=== PATIENT | female | born 1975 | race Two or more races ===

== ENCOUNTER 2016-05-14 19:24 | Emergency (ER) | payer OTHER ==
[~2016-05-14] VITALS: Ht 167.6 cm; Wt 99.8 kg
--- NOTE | 2016-05-14 19:46 | NUR ---
PT BB SELF TO ER C/C LOWER BACK PAIN WHILE GETTING OUT OF BED YESTERDAY. A+OX4. SKIN WARM, DRY. AFEBRILE. RR EVEN, UNLABORED. VSS, NAD NOTED. AMBULATED WITH STEADY GAIT TO ER BED 06. AWAITING MD BARNES AND FURTHER ORDERS. Valeria GRIFFIN RN INFORMED OF PT, GIVEN PT TO CONTINUE MAKENZIE.
--- NOTE | 2016-05-14 19:48 | NUR ---
DR. RIVERA AT BEDSIDE FOR EVAL.
[2016-05-14] MEDS ORDERED: KETOROLAC TROMETHAMINE 15 MG/ML VIAL ONE (19:58)
[2016-05-14] MEDS ORDERED: IV SET PRIMARY 1 EA INFUS.SET MC ONE (19:58)
[2016-05-14] MEDS ORDERED: IV NS 0.9% 1,000 ML ONE (19:58)
[2016-05-14] MEDS ORDERED: IV NS 0.9% 1,000 ML BAG IV ONE (20:00)
[2016-05-14] MEDS ORDERED: KETOROLAC TROMETHAMINE INJ 30 MG/ML VIAL IV ONE (20:00)
[2016-05-14 20:02] LABS: BASOPHILS % (AUTO) 0.5 % (0.0-2.0); EOSINOPHILS # (AUTO) 0.2 /CMM (0.0-0.7); EOSINOPHILS % (AUTO) 2.2 % (0.0-6.0); HEMATOCRIT 42 % (33-45); LYMPHOCYTES # (AUTO) 3.3 /CMM (0.8-4.8); LYMPHOCYTES % (AUTO) 33.8 % (20.0-44.0); MEAN CORPUSCULAR HEMOGLOBIN 30 PG (26.0-33.0); MEAN CORPUSCULAR HGB CONC 33 g/dl (31.0-36.0); MEAN CORPUSCULAR VOLUME 91 fL (82-100); MONOCYTES # (AUTO) 0.7 /CMM (0.1-1.30); MONOCYTES % (AUTO) 7.5 % (2.0-12.0); NEUTROPHILS # (AUTO) 5.5 /CMM (1.8-8.9); PLATELET COUNT (AUTO) 236 /CMM (150-450); RDW COEFFICIENT OF VARIATION 11.9 (11.5-15.0); RED BLOOD CELL COUNT(AUTO) 4.64 MIL/uL (4.0-5.2); WHITE BLOOD COUNT (AUTO) 9.7 K/uL (4.3-11.0)
--- NOTE | 2016-05-14 20:07 | NUR ---
URINE COLLECTED. CALLED LAB FOR [employer].
[2016-05-14 20:10] LABS: APPEARANCE,URINE Clear (CLEAR); BILIRUBIN,URINE Negative (NEGATIVE); BLOOD, URINE Large Ery/uL (NEGATIVE); COLOR,URINE Yellow (YELLOW); KETONES,URINE Negative (NEGATIVE); LEUKOCYTE ESTERASE ,URINE Negative (NEGATIVE); NITRITE, URINE Negative (NEGATIVE); PROTEIN,URINE 30 mg/dl (NEGATIVE); UGLUCOSE Negative (NEGATIVE)
[2016-05-14 20:12] LABS: CALCIUM, SERUM 8.5 mg/dL (8.5-10.1); CREATININE 0.9 mg/dL (0.6-1.3); POTASSIUM 3.6 mmol/L (3.5-5.1)
[2016-05-14 20:12] LABS: PREGNANCY TEST URINE QUAL NEGATIVE (NEGATIVE)
--- NOTE | 2016-05-14 20:17 | NUR ---
PT TO CT.
[2016-05-14 20:18] LABS: ALBUMIN 3.5 g/dL (3.4-5.0); BILIRUBIN,DIRECT 0.1 mg/dL (0.0-0.2); BILIRUBIN,TOTAL 0.5 mg/dL (0.2-1.0); TOTAL PROTEIN, SERUM 7.4 g/dL (6.4-8.2)
[2016-05-14 20:21] LABS: ADD URINE CULTURE NO; BACTERIA,URINE Few /HPF (None Seen); RBC,URINE TOO NUMEROUS TO COUN /HPF (0-2); SQUAMOUS EPITHELIAL CELL,UR Few /HPF (None Seen); WBC,URINE 0-2 /HPF (0-3)
--- NOTE | 2016-05-14 20:30 | NUR ---
PT RETURNED FROM CT.
--- NOTE | 2016-05-14 21:05 | NUR ---
DR. RIVERA SPEAKING TO PT REGARDING RESULTS.
--- NOTE | 2016-05-14 21:29 | NUR ---
IV removed. Catheter intact and site benign. Pressure and 4x4 applied to site. No bleeding noted. Patient discharged to home in stable condition. Written and verbal after care instructions given. Patient verbalizes understanding of instruction. ambulatory with a steady gait
[2016-05-14 21:30] VITALS: BP 127/68
== END 2016-05-14 21:30 | disposition home or self-care (01) ==
LOC: ER 19:31
DX: M54.5 Low back pain (principal); R31.29 Other microscopic hematuria; J45.909 Unspecified asthma, uncomplicated
CPT/HCPCS: 36415; 80048-TC; 80076-TC; 81000-TC; 83605-TC; 83690-TC; 84703-TC; 85025-TC; A4606; J1885; J7030; Z7610